=== PATIENT | male | born 1950 | race Caucasian/White ===

== ENCOUNTER 2018-08-04 14:37 | Outpatient (CLI) | payer MEDICARE, OTHER ==
--- NOTE | 2018-08-05 11:58 | CT Report ---
Reason: PERSONAL HISTORY OF NICOTI Procedure Date: 08/04/2018 Accession Number: [id number] / [id number] Procedure: CT - Chest/Lung Screen Low Dose W/O CPT Code: FULL RESULT: EXAM CT LUNG SCREEN EXAM DATE: 08/04/2018 02:59 PM. HISTORY: 67-year-old patient with [id number] smoking history. Currently smoking: Yes. COMPARISON: None. TECHNIQUE: CT examination of the entire thorax without contrast was performed using low-dose technique. Thin section coronal, axial, sagittal and MIP axial images were obtained. In accordance with CT protocol optimization, one or more of the following dose reduction techniques were utilized for this exam: automated exposure control, adjustment of mA and/or KV based on patient size, or use of iterative reconstructive technique. FINDINGS: Nodules: Right upper lobe: 2 mm nodule image 13 series 3. Right middle lobe: None. Right lower lobe: None. Left upper lobe: None. Left lower lobe: 4 mm nodule image 30 series 3, 4 mm nodule image 36 series 3. Emphysema: Moderate. Pleura: Unremarkable. Aorta: Mild calcifications in the region of the aortic valve. Mediastinum: Mild to moderate coronary calcifications. Coronary calcifications: None. Other pulmonary findings: Mild tree-in-bud opacities bilaterally. Other extrapulmonary findings: None. IMPRESSION: Lung-RADS ASSESSMENT CATEGORY: 3 - probably benign. Probability of malignancy: 1% to 2% RECOMMENDATION: 6 months low-dose CT follow-up. [facility]
== END 2018-08-04 14:38 | disposition home or self-care (01) ==
LOC: DI 14:37
PROVIDERS: ATTEND Student in an Organized Health Care Education/Training Program
DX: Z12.2 Encounter for screening for malignant neoplasm of respiratory organs (principal); J43.9 Emphysema, unspecified; F17.210 Nicotine dependence, cigarettes, uncomplicated

== ENCOUNTER 2019-01-26 11:01 | Outpatient (CLI) | payer MEDICARE ==
--- NOTE | 2019-01-27 11:23 | CT Report ---
Reason: PERSONAL HISTORY OF NICOTINE DEPENDENCE Procedure Date: 01/26/2019 Accession Number: [id number] / [id number] Procedure: CT - Low Dose Lung Cancer Screen CPT Code: FULL RESULT: EXAM CT LUNG SCREEN EXAM DATE: 01/26/2019 11:26 AM. HISTORY: 68-year-old patient with 33-[id number]-[id number] smoking history. Currently smoking: Yes. COMPARISON: CHEST SCREEN LOW DOSE W/O 08/04/2018. TECHNIQUE: CT examination of the entire thorax without contrast was performed using low-dose technique. Thin section coronal, axial, sagittal and MIP axial images were obtained. In accordance with CT protocol optimization, one or more of the following dose reduction techniques were utilized for this exam: automated exposure control, adjustment of mA and/or KV based on patient size, or use of iterative reconstructive technique. FINDINGS: Nodules: Right upper lobe: Grouping of 3, 2 mm nodules in the right upper lobe is stable, image 23 through 26 series 4. Similarly stable, 2 mm and 3 mm nodules in the right upper lobe on image 30 series 4, better seen on current study but unchanged on retrospective review. Right middle lobe: None. Right lower lobe: None. Left upper lobe: Perifissural 5 mm nodule with suggestion of spiculations is unchanged on image 73. Left lower lobe: Subsolid 5 mm nodule in the left lower lobe on image 89 is similarly unchanged. Emphysema: Moderate. Pleura: Unremarkable. Aorta: Mild calcifications in the region of the aortic valve. Mediastinum: Mild to moderate coronary calcifications. Coronary calcifications: None. Other pulmonary findings: None. Other extrapulmonary findings: None. IMPRESSION: Lung-RADS ASSESSMENT CATEGORY: 2 - benign appearance or behavior. Probability of malignancy: Less than 1%. RECOMMENDATION: Continue annual low-dose CT. [facility]
== END 2019-01-26 11:02 | disposition home or self-care (01) ==
LOC: DI 11:01
PROVIDERS: ATTEND Student in an Organized Health Care Education/Training Program
DX: Z12.2 Encounter for screening for malignant neoplasm of respiratory organs (principal); J43.9 Emphysema, unspecified; F17.210 Nicotine dependence, cigarettes, uncomplicated